=== PATIENT | male | born 1940 | race Caucasian/White ===

== ENCOUNTER 2020-07-06 23:23 | Emergency (ER) | payer MEDICARE, OTHER ==
[~2020-07-06 23:23] MED LIST: ACID CONTROLLER20 MG PO; ADULT LOW DOSE81 MG PO; BEVESPI AEROS10.7 GM INH; BUDESONIDE0.5 MG/2 M NEB; CLARITIN10 M2 PO; COLACE 100MG C100 MG PO; LOPRESSOR 25 MG25 MG PO; LOPRESSOR100 MG PO; MOTION SICKNESS25 M2 PO; TIROSINT50 MCG PO; VENTOLIN HFA 66.7 GM INH; ZITHROMAX250 MG PO
[2020-07-07 00:08] LABS: HEMOGLOBIN 13.2 gm/dl (14.0-17.5); RED BLOOD COUNT 4.21 M/UL (4.20-5.50); WHITE BLOOD COUNT 10.9 K/UL (4.5-11.0)
[2020-07-07 00:36] LABS: BUN/CREATININE RATIO 27 (0-10)
== END 2020-07-07 01:40 | disposition home or self-care (01) ==
LOC: ER1 23:23
PROVIDERS: Emergency Medicine
DX: I62.9 Nontraumatic intracranial hemorrhage, unspecified (principal); I10 Essential (primary) hypertension; J44.9 Chronic obstructive pulmonary disease, unspecified; Z88.5 Allergy status to narcotic agent
CPT/HCPCS: 36600; 70450; 71045; 80053; 80307; 81001; 82550; 82553; 82803; 83605; 83690; 83735; 83874; 83880; 84100; 84439; 84443; 84484; 85025; 85610; 85730; 87040; 87086; 87635; 93005; 94660; 94760; 99285; G0480